=== PATIENT | female | born 1950 | race Caucasian/White ===

== ENCOUNTER 2018-03-31 12:27 | Emergency (ER) | payer MEDICARE, MEDICAID ==
[~2018-03-31] VITALS: Ht 165.1 cm; Wt 75.0 kg
[~2018-03-31 12:27] MED LIST: AMIT50TA3 PO; ATEN50TA PO; CLOP75TA15 PO; GLIM4TAB PO; HYDR25TA4 PO; LEVO25TA2 PO
[2018-03-31 12:34] VITALS: BP 128/77
[2018-03-31] MEDS ORDERED: ACET1TAB12 PO (12:39)
== END 2018-03-31 12:54 | disposition home or self-care (01) ==
LOC: ER 12:27
DX: S00.83XA Contusion of other part of head, initial encounter (principal); E78.00 Pure hypercholesterolemia, unspecified; E11.9 Type 2 diabetes mellitus without complications; E03.9 Hypothyroidism, unspecified; Z79.899 Other long term (current) drug therapy; W18.30XA Fall on same level, unspecified, initial encounter; Y93.89 Activity, other specified; Y92.89 Other specified places as the place of occurrence of the external cause; Y99.8 Other external cause status
CPT/HCPCS: 99283